=== PATIENT | male | born 1995 | race Two or more races ===

== ENCOUNTER 2025-03-16 15:24 | Emergency (ER) | payer OTHER, SELFPAY ==
[2025-03-16 15:25] VITALS: BMI 34.0
[2025-03-16 15:49] VITALS: BP 121/62; PULSE 75; RESP 18; TEMP 37.1; O2SAT 97
--- NOTE | 2025-03-16 18:38 | XR_ITS ---
Examination: CT brain head without contrast. 2-D sagittal coronal reconstructions Date and time of exam:March 16, 2025 and 1912 hours INDICATIONS: Altered mental status head pain 6 days CTDI: vol (mGy):55.4 DLP: (mGycm):1143 Technique: Multiple CT axial sections of the brain have been obtained, 5 mm slice thickness. Contrast has not been administered. 2-D sagittal, coronal reconstructions have been obtained Low dose protocols were performed. One or more of the following dose reduction techniques were used; automated exposure control, adjustment of the mA and/or KV according to patient size, use of iterative reconstruction technique. Findings: No significant ventricular enlargement. Intra-axial or extra-axial hemorrhage density is not seen. No mass effect or midline shift Basal cisterns are not remarkable. Fourth ventricle is midline. Cranial vault intact. Impression: Negative for acute hemorrhage, mass effect or midline shift Advise clinical correlation follow up accordingly
--- NOTE | 2025-03-16 19:04 | EDNOTE_ITS ---
<Statement entered by Soraya Romero MD - 03/16/25 22:22> As co-signing physician, I was present and available for consult prn. I concur with the plan and care as documented by the midlevel provider. ED Headache RME/HPI General Chief Complaint: Headache Stated Complaint: POSTERIOR HEADACHE X 6 DAYS; BRAIN FOG Time Seen by Provider: 03/16/25 18:37 Arrival date/time: 03/16/25 15:24 30M with history of marijuana/alcohol use presents to ED 1 week of posterior head/neck pain. Possible brain fog, which patient describes as memory loss. Patient denies fall/trauma, fevers/chills, URI symptoms, vision changes, N/V, dizziness, and recent chiropractic manipulation. Ibuprofen helps, but doesn't relieve pain. Limitations: no limitations Related Data Allergies Allergy/AdvReac Type Severity Reaction Status Date / Time No Known Allergies Allergy Verified 03/16/25 15:27 Review of Systems Review of Systems Systems Reviewed: All systems reviewed, normal except as documented Constitutional Constitutional: Reports system reviewed and no additional complaints, except as documented, Denies fever(s) and Reports headache(s) ENT Ears, Nose, Mouth, and Throat: Denies disequilibrium and Reports headache(s) Cardiovascular Cardiovascular: Reports system reviewed and no additional complaints, except as documented, Denies chest pain and Denies dyspnea Respiratory Respiratory: Reports system reviewed and no additional complaints, except as documented, Denies cough and Denies dyspnea Gastrointestinal Gastrointestinal: Reports system reviewed and no additional complaints, except as documented, Denies abdominal pain, Denies nausea and Denies vomiting Neurologic Neurologic: Reports system reviewed and no additional complaints, except as documented, Reports as per HPI, Denies confusion, Denies disequilibrium, Reports headache(s) and Reports memory loss Psychiatric Psychiatric: Denies confusion and Reports memory loss Past Medical History Social History SMOKING STATUS: Former smoker ED Exam General Limitations: Present no limitations General appearance: Present alert and in no apparent distress Head Head exam: Present atraumatic Eye Eye exam: Present normal appearance, PERRL and EOMI ENT ENT exam: Present normal exam, normal oropharynx and mucous membranes moist Neck Neck exam: Present normal inspection, full ROM and trachea midline Chest Chest inspection: Present normal inspection and symmetric chest wall rise Respiratory Respiratory exam: Present normal lung sounds bilaterally Cardiovascular Cardiovascular exam: Present regular rate, normal rhythm and normal heart sounds Abdominal Exam Abdominal exam: Present soft and normal bowel sounds Extremities Exam Extremities exam: Present normal inspection and full ROM Back Exam Back exam: Present normal inspection and full ROM Neurological Exam Neurological exam: Present alert, oriented X3 and CN II-XII intact Psychiatric Psychiatric exam: Present normal affect and normal mood Skin Skin exam: Present warm, dry, intact and normal color Course Quality Measures none Orders Category Date Time Status CT head/brain wo con Stat Exams 03/16/25 18:38 Completed Vital Signs Vital signs: Vital Signs Temperature 98.8 F 03/16/25 15:49 Pulse Rate 75 03/16/25 15:49 Respiratory Rate 18 03/16/25 15:49 Blood Pressure 121/62 03/16/25 15:49 Pulse Oximetry (%) 97 03/16/25 15:49 Oxygen Delivery Method Room Air 03/16/25 15:49 O2 at 97% on RA and WNLs Headache MDM Narrative MDM Narrative:: 30M with history of marijuana/alcohol use presents to ED 1 week of posterior head/neck pain. Possible brain fog, which patient describes as memory loss. Patient denies fall/trauma, fevers/chills, URI symptoms, vision changes, N/V, dizziness, and recent chiropractic manipulation. Ibuprofen helps, but doesn't relieve pain. Physical exam reveals normal pupil response and EOM. CN II-XII grossly intact. Neck ROM intact though some tightness. Gait normal. Speech normal. Patient is afebrile, calm, and alert. CT head unremarkable. Manager Sales Support given. Patient data External records reviewed:: None Clinical information provided by:: patient Social determinants that could affect healthcare access:: substance use Patient has the following chronic illnesses:: none How is presenting disease/condition affected by chronic disease/condition?: no chronic disease Evaluation data The following diagnostics were reviewed and interpreted by me:: radiology exam(s) Lab and/or radiology exams considered but not ordered:: ordered Interpretation Summary: above Medications / Prescriptions Medications or Prescriptions considered but not ordered:: not ordered Medication administrations:: n/a Consultations Consultation(s) initiated? (list below): No Diagnosis Differential diagnosis headache: migraine, tension headache, subarachnoid hemorrhage, headache, meningitis, sinusitis and postconcussion syndrome Most likely diagnosis given after review of the tests above:: VELIZ Admission Indicated Admission indicated?: not indicated Admission Request Was there a request for admission?: No Disposition Plan Disposition Plan: Discharge Discharge Attestation Discharge Attestation: The patient and all family members were given an opportunity to ask questions and understood the discharge instructions. Discharge instructions specifically effects, indications for sooner follow up or return to the emergency department, and the expected course of current diagnosis. Patient condition: Stable Discharge Plan Plan Patient Disposition: HOME (Self Care) Discharge Disposition comment: Stable Problem List Clinical Impression: Headache Patient/Caregiver Discharge Instructions Education Materials: Self-Care for Headaches Additional Instructions: Please follow-up with PCP within 24-48 hours and return immediately if symptoms worsen. If problem persists, see PCP for possible MRI and/or neuro referral. Print Language: [place]ian Stand Alone Forms: Patient Portal Info Letter LAURA/SARAH Supervising Physician LAURA/SARAH Supervising Physician: Dr. Romero
== END 2025-03-16 20:16 | disposition home or self-care (01) ==
PROVIDERS: Emergency Provider Emergency Medicine
DX: R51.9 Headache, unspecified (principal)
CPT/HCPCS: 70450; 99283